=== PATIENT | female | born 1960 | race Caucasian/White ===

== ENCOUNTER 2017-04-14 19:42 | Emergency (ER) | payer OTHER ==
[~2017-04-14] VITALS: Ht 160 cm; Wt 127.0 kg
[~2017-04-14 19:42] MED LIST: ALPRAZOLAM 0.50.5 MG; AMBIEN 10 MG TA10 MG PO; AMITRIPTYLINE H50 M2 PO; AMITRIPTYLINE H50 M3 PO; DILAUDID 4 MG TA4 M1 PO; DILAUDID2 M1 PO; ELAVIL; HYDROCHLOROTHIA25 M1 PO; KEPPRA 500 MG500 M1 PO; LIPITOR20 MG PO; LOTREL 10-20 M1 EACH PO; METHADONE HCL5 MG PO; NEURONTIN250 MG/5 M PO; OXYCODONE-APAP1 EAC6 PO; PERCOCET 5-3251 EACH PO; PREDNISONE 20 M20 MG PO; REQUIP 1 MG TABL1 M1 PO; TRILEPTAL 300300 MG PO; XANAX 0.5 MG0.5 M1 PO; ZOLOFT25 MG PO
[2017-04-14] MEDS ORDERED: NORCO 5-325 TA1 EACH PO (21:45)
== END 2017-04-14 22:06 | disposition home or self-care (01) ==
LOC: ER 19:42
DX: M25.511 Pain in right shoulder (principal); Z90.49 Acquired absence of other specified parts of digestive tract; W07.XXXA Fall from chair, initial encounter; Y93.89 Activity, other specified; Y92.89 Other specified places as the place of occurrence of the external cause; Y99.9 Unspecified external cause status

== ENCOUNTER 2018-08-19 12:29 | Emergency (ER) | payer OTHER ==
[~2018-08-19] VITALS: Ht 160 cm; Wt 129.3 kg
[~2018-08-19 12:29] MED LIST changes: +NORCO 5-325 TA1 EACH PO
[2018-08-19] MEDS ORDERED: TOPAMAX 100 MG100 MG PO (12:40)
[2018-08-19] MEDS ORDERED: ZOLOFT50 MG PO (12:40)
[2018-08-19] MEDS ORDERED: MIRAPEX0.5 MG PO (12:41)
[2018-08-19] MEDS ORDERED: NEURONTIN 300300 M1 PO (12:41)
== END 2018-08-19 15:12 | disposition home or self-care (01) ==
LOC: ER 12:29
DX: R60.0 Localized edema (principal); R07.81 Pleurodynia; Z90.49 Acquired absence of other specified parts of digestive tract; Z98.890 Other specified postprocedural states

== ENCOUNTER → 2018-08-31 | Outpatient (CLI) | payer OTHER ==
[~2018-08-31] MED LIST changes: +MIRAPEX0.5 MG PO; +NEURONTIN 300300 M1 PO; +TOPAMAX 100 MG100 MG PO; +ZOLOFT50 MG PO
== END ==
LOC: ULTRA 15:56
DX: R60.0 Localized edema (principal)

== ENCOUNTER → 2019-06-22 | Outpatient (CLI) | payer OTHER | LOC: ULTRA 15:04 | DX: R60.0 Localized edema (principal); M79.605 Pain in left leg ==